=== PATIENT | female | born 1975 | race Caucasian/White ===

== ENCOUNTER 2018-08-17 10:16 | Outpatient (CLI) | payer OTHER | END 2018-08-17 23:59 | disposition home or self-care (01) | LOC: LAB 10:16 | PROVIDERS: ATTEND Family Medicine | DX: E03.9 Hypothyroidism, unspecified (principal) | CPT/HCPCS: 36415; 84443 ==

== ENCOUNTER 2019-08-10 06:55 | Emergency (ER) | payer SELFPAY ==
[~2019-08-10] VITALS: Ht 162.6 cm; Wt 68.2 kg
[2019-08-10 06:59] VITALS: BP 160/84
[2019-08-10] MEDS ORDERED: ketorolac trometh inj. 60 MG/2 ML VIAL IM ONE (07:15)
--- NOTE | 2019-08-10 07:25 | NUR ---
GAVE PT AN ICE PACK FOR BACK, PROVIDED A WARM BLANKET, TURNED OFF LIGHTS FOR PT TO ICE AND REST.
--- NOTE | 2019-08-10 07:44 | NUR ---
PT AMBULATORY TO THE BATHROOM AND REPORTS FEELING BETTER AFTER BEING MEDICATED AND APPLYING ICE
[2019-08-10] MEDS ORDERED: CYCL-1 PO (07:47)
== END 2019-08-10 07:56 | disposition home or self-care (01) ==
LOC: ER 06:55
DX: M54.41 Lumbago with sciatica, right side (principal); Z79.899 Other long term (current) drug therapy; Z88.1 Allergy status to other antibiotic agents; Z88.8 Allergy status to other drugs, medicaments and biological substances
CPT/HCPCS: 96372; 99283; J1885

== ENCOUNTER 2020-05-04 09:38 | Outpatient (CLI) | payer OTHER ==
[~2020-05-04 09:38] MED LIST: CYCL-1 PO
[2020-05-04 10:59] LABS: BASOPHILS % (AUTO) 0.5 % (0-1); EOSINOPHILS % (AUTO) 0.6 % (0-6); HEMATOCRIT 41.8 % (35.0-45.0); HEMOGLOBIN 14.1 g/dl (12.0-16.0); LYMPHOCYTES % (AUTO) 14.9 % (21-51); MEAN CORPUSCULAR HEMOGLOBIN 34.3 PG (27.0-31.0); MEAN CORPUSCULAR HGB CONC 33.7 g/dL (33.0-36.5); MEAN CORPUSCULAR VOLUME 101.7 FL (78-98); MEAN PLATELET VOLUME 8.7 FL (7.4-10.4); MONOCYTES # (AUTO) 0.6 X10'3 (0-0.9); MONOCYTES % (AUTO) 9.3 % (2-12); NEUTROPHILS # (AUTO) 5.1 X10'3 (1.8-7.7); NEUTROPHILS % (AUTO) 74.7 % (42-75); PLATELET COUNT 186 X10'3 (140-440); RED BLOOD COUNT 4.11 X10'6 (4.20-5.60); RED CELL DISTRIBUTION WIDTH 13.6 % (11.5-14.5); WHITE BLOOD COUNT 6.8 X10'3 (4.5-11.0)
[2020-05-04 11:05] LABS: CLARITY,URINE CLEAR (Clear); COLOR,URINE YELLOW (Yellow); GLUCOSE, URINE NEGATIVE (Neg); KETONES,URINE NEGATIVE (Neg); LEUKOCYTE ESTERASE ,URINE NEGATIVE (Neg); NITRITES, URINE NEGATIVE (Neg); OCCULT BLOOD,URINE TRACE-LYSED (Neg); PH,URINE 7.5 (4.8-8.0); PROTEIN,URINE NEGATIVE (Neg)
[2020-05-04 11:19] LABS: UA COLLECTION TYPE CLN CATCH MIDSTREAM
[2020-05-04 11:20] LABS: BACTERIA,URINE 1+ /HPF (Neg); MUCUS STRANDS MANY /LPF (Neg); RBC,URINE 0-2 /HPF (0-2); SQUAMOUS EPITHELIAL CELL,UR FEW /LPF (FEW)
[2020-05-04 11:26] LABS: ALANINE AMINOTRANSFERASE 27 U/L (12-78); ALBUMIN 3.7 G/DL (3.4-5.0); ALBUMIN/GLOBULIN RATIO 1.1 (1.1-1.5); ALKALINE PHOSPHATASE 52 IU/L (46-116); ANION GAP 10 (8-16); ASPARTATE AMINO TRANSFERASE 22 U/L (10-37); BILIRUBIN,TOTAL 0.4 MG/DL (0.1-1.0); BLOOD UREA NITROGEN 6 MG/DL (7-18); BUN/CREATININE RATIO 6.3 (6.6-38.0); CHLORIDE 109 MMOL/L (99-107); CHOL/HDL RATIO 3.9 (0.00-4.99); CHOLESTEROL 214 MG/DL (0-200); CREATININE 0.96 MG/DL (0.40-0.90); GLUCOSE 94 MG/DL (70-104); HDL CHOLESTEROL 55 MG/DL (35-60); LDL CHOLESTEROL 124 MG/DL (50-100); POTASSIUM 3.9 MMOL/L (3.5-5.1); SODIUM 142 MMOL/L (135-145); TOTAL CARBON DIOXIDE 23.5 MMOL/L (24-32); TOTAL PROTEIN 7.1 G/DL (6.4-8.2); TRIGLYCERIDES 200 MG/DL (20-135); eGFR 63 ML/MIN
== END 2020-05-04 23:59 | disposition home or self-care (01) ==
LOC: LAB 09:38
PROVIDERS: ATTEND Family Medicine
DX: Z00.00 Encounter for general adult medical examination without abnormal findings (principal)
CPT/HCPCS: 36415; 80053; 80061; 81001; 84439; 84443; 85025; 87077; 87088; 87186

== ENCOUNTER 2021-10-05 13:03 | Outpatient (CLI) | payer BC | END 2021-10-05 23:59 | disposition home or self-care (01) | LOC: CARD DIAG 13:03 | PROVIDERS: ATTEND Family Medicine | DX: I08.8 Other rheumatic multiple valve diseases (principal) | CPT/HCPCS: 93306 ==

== ENCOUNTER 2023-10-01 06:22 | Emergency (ER) | payer BC ==
[~2023-10-01] VITALS: Ht 162.6 cm; Wt 83.9 kg
[2023-10-01] MEDS ORDERED: normal saline 1000ML IV soln IVB ONE (07:05)
[2023-10-01] MEDS ORDERED: ondansetron/PF 4mg/2ml inj IV ONE (07:05)
[2023-10-01] MEDS ORDERED: ketorolac trometh. 30mg/ml inj. IV ONE (07:05)
[2023-10-01] MEDS ORDERED: acetaminophen 325mg tablet PO ONE (07:05)
[2023-10-01] MEDS ORDERED: famotidine/PF 10 mg/ml inj IV ONE (07:05)
[2023-10-01] MEDS ORDERED: guaiFENesin/DM 10ml UD oral syrup PO ONE (07:05)
[2023-10-01 07:49] LABS: BASOPHILS % (AUTO) 0.7 % (0-1); EOSINOPHILS % (AUTO) 0.5 % (0-6); HEMATOCRIT 41.8 % (35.0-45.0); HEMOGLOBIN 14.2 g/dl (12.0-16.0); LYMPHOCYTES # (AUTO) 0.9 X10'3 (1.1-4.8); LYMPHOCYTES % (AUTO) 26.7 % (21-51); MEAN CORPUSCULAR HEMOGLOBIN 34.3 PG (27.0-31.0); MEAN CORPUSCULAR HGB CONC 34.1 g/dL (33.0-36.5); MEAN CORPUSCULAR VOLUME 100.7 FL (78-98); MEAN PLATELET VOLUME 8.2 FL (7.4-10.4); MONOCYTES # (AUTO) 0.4 X10'3 (0-0.9); MONOCYTES % (AUTO) 12.7 % (2-12); NEUTROPHILS # (AUTO) 2.1 X10'3 (1.8-7.7); NEUTROPHILS % (AUTO) 59.4 % (42-75); PLATELET COUNT 159 X10'3 (140-440); RED BLOOD COUNT 4.15 X10'6 (4.20-5.60); RED CELL DISTRIBUTION WIDTH 13.5 % (11.5-14.5); WHITE BLOOD COUNT 3.5 X10'3 (4.5-11.0)
[2023-10-01] MEDS ORDERED: ACET-1025 PO (07:51)
[2023-10-01] MEDS ORDERED: IBUP-1984 PO (07:51)
[2023-10-01] MEDS ORDERED: PRED20TA PO (07:51)
[2023-10-01] MEDS ORDERED: NIRM1TAB PO (07:51)
[2023-10-01] MEDS ORDERED: ONDA4TAB12 PO (07:51)
[2023-10-01] MEDS ORDERED: PROM118S5 PO (07:51)
[2023-10-01 08:00] LABS: ALANINE AMINOTRANSFERASE 66 U/L (12-78); ALBUMIN 3.9 G/DL (3.4-5.0); ALBUMIN/GLOBULIN RATIO 1.1 (1.1-1.5); ALKALINE PHOSPHATASE 68 IU/L (46-116); ANION GAP 9 (8-16); ASPARTATE AMINO TRANSFERASE 44 U/L (10-37); BILIRUBIN,TOTAL 0.4 MG/DL (0.1-1.0); BLOOD UREA NITROGEN 6 MG/DL (7-18); BUN/CREATININE RATIO 6.8 (10.0-20.0); CALCIUM 9.3 MG/DL (8.5-10.1); CHLORIDE 106 MMOL/L (99-107); CREATININE 0.88 MG/DL (0.40-0.90); GLUCOSE 113 MG/DL (70-104); POTASSIUM 3.4 MMOL/L (3.5-5.1); SODIUM 139 MMOL/L (135-145); TOTAL CARBON DIOXIDE 23.6 MMOL/L (24-32); TOTAL PROTEIN 7.4 G/DL (6.4-8.2); eCRCL 67 ML/MIN; eGFR 68 ML/MIN
[2023-10-01 08:29] VITALS: BP 136/71; PULSE 72; RESP 16; TEMP 97.7; O2SAT 97
== END 2023-10-01 08:34 | disposition home or self-care (01) ==
LOC: EEVIPCON 06:23 → ER 06:23
DX: U07.1 COVID-19 (principal); J02.9 Acute pharyngitis, unspecified; R50.9 Fever, unspecified; E86.0 Dehydration; E03.9 Hypothyroidism, unspecified; Z98.890 Other specified postprocedural states
CPT/HCPCS: 36415; 71045; 80053; 85025; 87502; 87503; 87811; 96374; 96375; 99284; J1885; J2405; J3490; J7030

== ENCOUNTER 2024-10-26 06:36 | Emergency (ER) | payer BC ==
[~2024-10-26] VITALS: Ht 162.6 cm; Wt 77.3 kg
[~2024-10-26 06:36] MED LIST changes: +NIRM1TAB PO; +ONDA-243 PO
[2024-10-26] MEDS: TETRACAINE 0.5% 4 ML OPHTHALMIC DROPS EACHEYE ONE (07:25)
[2024-10-26 07:32] VITALS: BP 157/80; PULSE 64; RESP 16; TEMP 98.7; O2SAT 97
[2024-10-26] MEDS: TETRAcaine 0.5% ophthalmic drops 15ml RIGHTEYE ONE (07:33)
[2024-10-26] MEDS ORDERED: POLOS RIGHTEYE (07:36)
== END 2024-10-26 07:45 | disposition home or self-care (01) ==
LOC: ER 06:37
DX: S05.01XA Injury of conjunctiva and corneal abrasion without foreign body, right eye, initial encounter (principal); E03.9 Hypothyroidism, unspecified; Z79.899 Other long term (current) drug therapy; W44.8XXA Other foreign body entering into or through a natural orifice, initial encounter; Y93.89 Activity, other specified; Y92.59 Other trade areas as the place of occurrence of the external cause; Y99.8 Other external cause status; Z88.8 Allergy status to other drugs, medicaments and biological substances
CPT/HCPCS: 99283